=== PATIENT | male | born 1960 | race Caucasian/White ===

== ENCOUNTER 2024-02-01 07:52 | Outpatient (CLI) | payer OTHER, SELFPAY | END 2024-02-01 07:53 | disposition home or self-care (01) | LOC: ANHAUDIO 07:52 | PROVIDERS: PCP Internal Medicine; Visit Provider Internal Medicine | DX: H93.13 Tinnitus, bilateral (principal); H90.3 Sensorineural hearing loss, bilateral | CPT/HCPCS: 92557; 92567 ==

== ENCOUNTER 2024-05-10 02:07 | Day surgery (SDC) | payer OTHER, SELFPAY ==
[2024-04-26 10:27] VITALS: BMI 31.1
[2024-05-10 07:14] VITALS: BP 141/76; PULSE 83; RESP 16; TEMP 36.5; O2SAT 100
[2024-05-10] MEDS: LACTATED RINGERS 1,000 ML 150 ML IV CONT (07:21)
--- NOTE | 2024-05-10 07:48 | PM.HPGS ---
History of Present Illness History of Present Illness Consent: Risks, benefits, and alternatives have been discussed and questions answered. Patient agrees to proceed with procedure. Chief complaint: Neoplasm screening Narrative: Elie Schmid is a 63 year old male here for screening colonoscopy, last one 11 years ago Review of Systems Review of Systems: All systems reviewed & are unremarkable except as noted in HPI and below PMFSH Past Medical History Medical History (Updated 01/24/24 @ 12:32 by Chapo Valdes DO) Benign essential HTN Broken foot Left Chicken pox COVID-19 DM w/o complication type II Elevated liver enzymes Head ache History of fracture History of frequent headaches Hypercholesterolemia Hyperglycemia Long-term current use of testosterone replacement therapy Measles Metacarpal bone fracture Migraine ABREU (nonalcoholic steatohepatitis) Pectoral muscle rupture Surgical History Surgical History (Reviewed 10/29/23 @ 11:20 by Sarah Tiwari [facility]) H/O shoulder surgery right bicep labrum repair History of ankle surgery History of back surgery History of bone graft left heel bone cyst removal and bone graft Family History Family History (Reviewed 10/29/23 @ 11:20 by Sarah Tiwari [facility]) Father Renal carcinoma Mother Hypertension Diabetes mellitus Social History Social History (Updated 01/17/24 @ 08:20 by Mimi Yeung [facility]) Smoking status: Never smoker Alcohol intake: never Alcohol use details: Pt drinks occasionally. Substance use: never Substance use type: does not use Do You Feel Safe in your Home?: Yes Lack of Transportation: No Lack of Food: Never True Current Housing: I Have Housing Concerned About Future Housing: No Difficulty Paying Gas/Electric Bills: No Difficulty Paying for Meds: No Currently Unemployed: No Education: Master's Degree or Higher Difficulty w/ Childcare or Family Care: No Living arrangements: with family Occupation/Education: occupation Additional occupation/education comments: [employer] Spiritual care concerns: No Meds Home Medications and Allergies Home Medications Medication Instructions Recorded Confirmed Type cetirizine 10 mg tablet (Zyrtec) 10 mg PO DAILY 10/04/19 04/26/24 History multivitamin 1 tablet PO DAILY 10/04/19 04/26/24 History ascorbate calcium (vitamin C) 500 500 mg PO DAILY 09/22/21 04/26/24 History mg tablet rosuvastatin 40 mg tablet See Rx Instructions .Route 07/27/22 04/26/24 Rx .COMPLEX #90 tabs valsartan 160 See Rx Instructions .Route 11/05/23 04/26/24 Rx mg-hydrochlorothiazide 12.5 mg .COMPLEX #90 tabs tablet omeprazole 20 mg capsule,delayed See Rx Instructions .Route 12/27/23 04/26/24 Rx release .COMPLEX #90 caps rizatriptan 10 mg tablet (Maxalt) 10 mg PO ONCE PRN migraine 01/10/24 04/26/24 Rx headache #15 tabs needle (disp) 18 G 18 gauge x 1 #100 ea 01/20/24 Rx 1/2 (BD Regular Bevel [place]) syringe with needle 3 mL 25 x 1 #100 ea 02/29/24 Rx 1/2 (BD Luer-Lakhwinder Syringe) testosterone cypionate 200 mg/mL 120 mg (0.6 mL) IM WEEKLY #4 mL 04/11/24 04/26/24 Rx intramuscular oil topiramate 25 mg tablet See Rx Instructions PO BID 04/11/24 04/26/24 Rx migraine prophylaxis #270 tabs cyclobenzaprine 10 mg tablet See Rx Instructions .Route 04/26/24 04/26/24 History .COMPLEX PRN Muscle Spasm Allergies Allergy/AdvReac Type Severity Reaction Status Date / Time penicillin G Allergy Mild RASH Verified 05/10/24 07:13 MEPERIDINE HCL AdvReac Severe VOMITING Uncoded 05/10/24 07:13 Vital Signs Vital Signs - 24 hr 05/10/24 07:14 Temperature 97.7 F Pulse Rate 83 Respiratory Rate 16 Blood Pressure 141/76 H Pulse Oximetry 100 Oxygen Delivery Room Air Exam Const: General: comfortable and no acute distress HENMT: Face/Nose/Sinus: Normal nares present Eyes: General: appearance normal, both eyes and all rela
--- NOTE | 2024-05-10 08:07 | WPDANESEPPF ---
Anes - Initial Pre Proc Eval Procedure: Operation Date: 05/10/24 08:30 Proposed Procedures p Screening Colonoscopy - Maximilian Vicente MD Date/Time: 05/10/24 08:07 Surgeon: Maximilian Vicente MD Pre Op Diagnosis: Neoplasm screening Patient Data Age: 63 Gender: M Height: 1.91 m Weight: 112.1 kg Last Vital Signs Temp 97.7 F 05/10/24 07:14 Pulse 83 05/10/24 07:14 Resp 16 05/10/24 07:14 BP 141/76 H 05/10/24 07:14 Pulse Ox 100 05/10/24 07:14 O2 Del Method Room Air 05/10/24 07:14 Allergies Allergy/AdvReac Type Severity Reaction Status Date / Time penicillin G Allergy Mild RASH Verified 05/10/24 07:13 MEPERIDINE HCL AdvReac Severe VOMITING Uncoded 05/10/24 07:13 Home Medications Medication Instructions Recorded Confirmed Type cetirizine 10 mg tablet (Zyrtec) 10 mg PO DAILY 10/04/19 04/26/24 History multivitamin 1 tablet PO DAILY 10/04/19 04/26/24 History ascorbate calcium (vitamin C) 500 500 mg PO DAILY 09/22/21 04/26/24 History mg tablet rosuvastatin 40 mg tablet See Rx Instructions .Route 07/27/22 04/26/24 Rx .COMPLEX #90 tabs valsartan 160 See Rx Instructions .Route 11/05/23 04/26/24 Rx mg-hydrochlorothiazide 12.5 mg .COMPLEX #90 tabs tablet omeprazole 20 mg capsule,delayed See Rx Instructions .Route 12/27/23 04/26/24 Rx release .COMPLEX #90 caps rizatriptan 10 mg tablet (Maxalt) 10 mg PO ONCE PRN migraine 01/10/24 04/26/24 Rx headache #15 tabs needle (disp) 18 G 18 gauge x 1 #100 ea 01/20/24 Rx 1/2 (BD Regular Bevel [place]) syringe with needle 3 mL 25 x 1 #100 ea 02/29/24 Rx 1/2 (BD Luer-Lakhwinder Syringe) testosterone cypionate 200 mg/mL 120 mg (0.6 mL) IM WEEKLY #4 mL 04/11/24 04/26/24 Rx intramuscular oil topiramate 25 mg tablet See Rx Instructions PO BID 04/11/24 04/26/24 Rx migraine prophylaxis #270 tabs cyclobenzaprine 10 mg tablet See Rx Instructions .Route 04/26/24 04/26/24 History .COMPLEX PRN Muscle Spasm Patient hx anesthesia problems: none Family hx anesthesia problems: none Results Review: All pre-operative results and documents have been reviewed as part of the pre-operative evaluation. [facility] Past Medical History Medical History (Updated 01/24/24 @ 12:32 by Chapo Valdes DO) Benign essential HTN Broken foot Left Chicken pox COVID-19 DM w/o complication type II Elevated liver enzymes Head ache History of fracture History of frequent headaches Hypercholesterolemia Hyperglycemia Long-term current use of testosterone replacement therapy Measles Metacarpal bone fracture Migraine ABREU (nonalcoholic steatohepatitis) Pectoral muscle rupture Surgical History Surgical History H/O shoulder surgery right bicep labrum repair History of ankle surgery History of back surgery History of bone graft left heel bone cyst removal and bone graft Family History Family History Father Renal carcinoma Mother Hypertension Diabetes mellitus Social History Social History (Updated 01/17/24 @ 08:20 by Mimi Yeung [facility]) Smoking status: Never smoker Alcohol intake: never Alcohol use details: Pt drinks occasionally. Substance use: never Substance use type: does not use Do You Feel Safe in your Home?: Yes Lack of Transportation: No Lack of Food: Never True Current Housing: I Have Housing Concerned About Future Housing: No Difficulty Paying Gas/Electric Bills: No Difficulty Paying for Meds: No Currently Unemployed: No Education: Master's Degree or Higher Difficulty w/ Childcare or Family Care: No Living arrangements: with family Occupation/Education: occupation Additional occupation/education comments: [employer] Spiritual care concerns: No Anes - Eval Final PreProcedure Day of Procedure 05/10/24 08:07 Patient weight: o
[2024-05-10 08:43] VITALS: BP 116/72; PULSE 86; RESP 21; O2SAT 97
[2024-05-10 08:53] VITALS: BP 128/80; PULSE 83; RESP 18; O2SAT 97
[2024-05-10 09:03] VITALS: BP 129/78; PULSE 71; RESP 20; O2SAT 97
== END 2024-05-10 09:19 | disposition home or self-care (01) ==
PROVIDERS: PCP Internal Medicine; Visit Provider Internal Medicine Gastroenterology
PROC: 0DJD8ZZ Inspection of Lower Intestinal Tract, Via Natural or Artificial Opening Endoscopic (ICD-10-PCS; CPT 45378; principal; 2024-05-10 08:30)
DX: Z12.11 Encounter for screening for malignant neoplasm of colon (principal); K64.8 Other hemorrhoids; I10 Essential (primary) hypertension; E78.00 Pure hypercholesterolemia, unspecified; K75.81 Nonalcoholic steatohepatitis (NASH); E66.9 Obesity, unspecified; Z68.30 Body mass index [BMI] 30.0-30.9, adult; Z98.890 Other specified postprocedural states; Z98.1 Arthrodesis status; Z80.51 Family history of malignant neoplasm of kidney
CPT/HCPCS: 45378; J7120

== ENCOUNTER 2024-11-08 15:34 | Emergency (ER) | payer OTHER, SELFPAY ==
--- NOTE | ~2024-11-08 | XR_ITS ---
EXAM: XR finger 4th RT min 2V DATE: 11/08/2024 16:03 HISTORY: pain rt distal 4th finger. smashed on snow plow. . COMPARISON: None available. FINDINGS: Normal mineralization. No fracture or dislocation. No lytic or blastic lesion. Short fourt h and fifth metacarpals. Mild scattered degenerative changes. No erosion or periosteal change. Soft t issues within normal limits. IMPRESSION: No acute osseous finding in the right fourth digit. Reviewed, dictated and finalized at location [facility] [employer]
[2024-11-08 15:49] VITALS: BP 114/73; PULSE 83; RESP 16; TEMP 36.6; O2SAT 98
--- NOTE | 2024-11-08 15:53 | ED.UPPEXIN ---
HPI - Extremity Injury (Upper) General Chief Complaint: Extremity Injury, Upper Stated Complaint: right ring finger injury Time Seen by Provider: 11/08/24 15:53 Source: patient, RN notes reviewed and old records reviewed Mode of arrival: ambulatory Limitations: no limitations History of Present Illness HPI narrative: 64-year-old male presents to the [facility] with in injury to the right ring finger distal aspect. Has a 0.5 cm superficial laceration to the outer aspect of the finger. Subungual hematoma noted. States that he was working on a snow plow when he smashed it. Unknown last tetanus. Per medical record 2019. Will update Related Data Home Medications ?Medication ?Instructions ?Recorded ?Confirmed ?Last Taken ?Type cetirizine 10 mg tablet (Zyrtec) 10 mg PO DAILY 10/04/19 07/25/24 Unknown History multivitamin 1 tablet PO DAILY 10/04/19 07/25/24 Unknown History ascorbate calcium (vitamin C) 500 500 mg PO DAILY 09/22/21 07/25/24 Unknown History mg tablet cyclobenzaprine 10 mg tablet See Rx Instructions .Route 04/26/24 07/25/24 Unknown History .COMPLEX PRN Muscle Spasm resmetirom 100 mg tablet 100 mg PO DAILY 07/25/24 07/25/24 Unknown History (Christiano) Allergies Allergy/AdvReac Type Severity Reaction Status Date / Time penicillin G Allergy Mild RASH Verified 07/25/24 07:32 MEPERIDINE HCL AdvReac Severe VOMITING Uncoded 07/25/24 07:32 Review of Systems Review of Systems: All systems reviewed & are unremarkable except as noted in HPI and below Constitutional: Constitutional: Reports no additional constitutional complaints ENT: Reports system reviewed and no additional complaints, except as documented Cardiovascular: Cardiovascular: Reports no additional cardiovascular complaints, Denies chest pain and Denies dyspnea Respiratory: Respiratory: Reports no additional respiratory complaints, Denies chest congestion, Denies cough and Denies dyspnea Musculoskeletal: Musculoskeletal: Reports as per HPI Integumentary/Breasts: Skin/Breast: Reports as per HPI PMF Past Medical History Medical History Migraine Head ache ABREU (nonalcoholic steatohepatitis) Long-term current use of testosterone replacement therapy DM w/o complication type II COVID-19 Broken foot Left Metacarpal bone fracture Hyperglycemia Elevated liver enzymes Pectoral muscle rupture Hypercholesterolemia History of frequent headaches History of fracture Measles Chicken pox Benign essential HTN Surgical History Surgical History History of ankle surgery History of bone graft left heel bone cyst removal and bone graft H/O shoulder surgery right bicep labrum repair History of back surgery Family History Family History Father Renal carcinoma Mother Hypertension Diabetes mellitus Social History Social History Social History: Caffeine-daily Smoking status: Never smoker Alcohol intake: current Alcohol use details: Pt drinks occasionally. Substance use: never Substance use type: does not use Do You Feel Safe in your Home?: Yes Lack of Transportation: No Lack of Food: Never True Current Housing: I Have Housing Concerned About Future Housing: No Difficulty Paying Gas/Electric Bills: No Difficulty Paying for Meds: No Currently Unemployed: No Education: Master's Degree or Higher Difficulty w/ Childcare or Family Care: No Living arrangements: with family Occupation/Education: occupation Additional occupation/education comments: [employer] Spiritual care concerns: No Comments At the time of my signature, I reviewed and agree with the nursing past medical, surgical, social, and family history. There is no relevant family history pertinent to the patient complaint. Exam Const: General: cooperative, healthy appearing, comfortable, no acute distress, well developed, alert and well nourished Nutritional Appearance: well nourished Orientation/consciousness: patient oriented x3 Limitations: no limitations HENMT: Head: normal to inspection Eyes: General: appearance normal, both eyes and all related structures Alignment and Position: alignment normal Neck: Neck: normal visual inspection, full ROM, no lymphadenopathy and no meningeal signs Chest: Chest palpation & inspection: normal inspection of the chest Resp: Effort & Inspection: normal respiratory effort and able to speak in complete sentences Cardio: Rate: regular rate Skin: General skin exam: normal color and no rashes or lesions noted Wounds: wounds noted laceration right distal 4th finger size (0.5) and margins well approximated; no drainage and without any surrounding erythema Neuro: General: patient oriented x3, gait normal, moves all extremities and no meningeal signs Cognition (Neuro): normal cognition Speech: normal speech Gait exam (Neuro): Normal gait present Extrem: General: normal to inspection, full ROM, capillary refill normal and normal gait Right upper extremity: full ROM and Extremity exam: right hand laceration and ecchymosis of the 4th digit at the distal phalanx and at the nailbed; no foreign bodies Psych: Appearance: grossly normal and well kempt Mental Status: mental status grossly normal Speech and movement: Normal speech and movement present and Clear speech present Affect: normal affect Attitude: cooperative Course Course Level of Care: Express Care Visit Vital Signs Vital signs: Vital Signs Temperature 97.8 F 11/08/24 15:49 Pulse Rate 83 11/08/24 15:49 Respiratory Rate 16 11/08/24 15:49 Blood Pressure 114/73 11/08/24 15:49 Pulse Oximetry 98 11/08/24 15:49 Oxygen Delivery Room Air 11/08/24 15:49 Temperature 97.8 F 11/08/24 15:49 Pulse Rate 83 11/08/24 15:49 Respiratory Rate 16 11/08/24 15:49 Blood Pressure 114/73 11/08/24 15:49 Pulse Oximetry 98 11/08/24 15:49 Oxygen Delivery Room Air 11/08/24 15:49 Reviewed MDM - Extremity Injury (Upper) MDM Narrative Medical decision making narrative: Patient sitting comfortably in exam room. Nontoxic, vitals stable. Patient in no acute distress. Patient with previous surgery orthopedic on finger, concern for fracture. Does have a some own go hematoma, very minor, laceration to the finger as well, able to irrigate and use skin glue. Tried with cautery tool to drain the subungual hematoma, no success. Patient appropriate for outpatient treatment and follow-up Discharge instructions reviewed with patient, as well as provided in writing per nursing staff. The instructions also include specific and strict return/GO TO THE ER as well as f/u information. All questions have been answered, and the patient deny any further questions with discharge and discharge plan. Some parts of this dictation were generated by voice recognition software and may contain typographical and/or grammatical inaccuracies. Differential Diagnosis Differential diagnosis: Likely other (Laceration, subungual hematoma, contusion, fracture) Imaging Data Radiologist's impression: EXAM: XR finger 4th RT min 2V DATE: 11/08/2024 16:03 HISTORY: pain rt distal 4th finger. smashed on snow plow. . COMPARISON: None available. FINDINGS: Normal mineralization. No fracture or dislocation. No lytic or blastic lesion. Short fourth and fifth metacarpals. Mild scattered degenerative changes. No erosion or periosteal change. Soft tissues within normal limits. IMPRESSION: No acute osseous finding in the right fourth digit. Critical Care Time Critical Care Time Critical Care Time: No Discharge Plan Discharge Clinical Impression: Subungual hematoma, Superficial laceration of finger, Vaccine for [id number], combined Patient Disposition: Home, Self-Care Condition: Stable Instructions: Antibiotic Form, Subungual Hematoma (ED), Skin Adhesive Care (ED) Additional Instructions: Rest, ice and elevate every 2-3 hours for 15-20 minutes while awake. Take Motrin as needed for pain. Wash with warm soapy water 2 to 3 times a day. Pat dry. While skin glue is in place please do not use any type of creams, ointments, lotions, detergents or hand advertising operations manager is. Follow-up with primary care provider Patient Language: Kuwaiti Prescriptions: No Action ascorbate calcium (vitamin C) 500 mg tablet 500 mg PO DAILY multivitamin Tablet 1 tablet PO DAILY cetirizine [Zyrtec] 10 mg tablet 10 mg PO DAILY Rezdiffra 100 mg tablet 100 mg PO DAILY cyclobenzaprine 10 mg tablet See Rx Instructions .ROUTE .COMPLEX PRN (Reason: Muscle Spasm) Rx Instructions: TAKE 1 TABLET BY MOUTH TWICE A DAY NEEDED FOR MUSCLE SPASMS (DME) BD Regular Bevel [place] 18 gauge x 1 1/2 needle See Rx Instructions .Route Qty: 100 1RF Rx Instructions: Use to draw up Testosterone (DME) BD Luer-Lakhwinder Syringe 3 mL 25 x 1 1/2 syringe See Rx Instructions .Route Qty: 100 2RF Rx Instructions: Use to inject Testosterone topiramate 50 mg tablet 50 mg PO BID Qty: 60 6RF omeprazole 20 mg capsule,delayed release(DR/EC) See Rx Instructions .ROUTE .COMPLEX Qty: 90 1RF Dose Instruction: TAKE 1 CAPSULE BY MOUTH EVERY DAY AT LEAST 30 MINUTES BEFORE EATING Rx Instructions: TAKE 1 CAPSULE BY MOUTH EVERY DAY AT LEAST 30 MINUTES BEFORE EATING testosterone cypionate 200 mg/mL oil 120 mg IM WEEKLY Qty: 10 2RF Rx Instructions: WEDNESDAY valsartan-hydrochlorothiazide 160-12.5 mg tablet See Rx Instructions .ROUTE .COMPLEX Qty: 90 3RF Dose Instruction: TAKE 1 TABLET BY MOUTH EVERY DAY Rx Instructions: TAKE 1 TABLET BY MOUTH EVERY DAY rizatriptan [Maxalt] 10 mg tablet 10 mg PO ONCE PRN (Reason: migraine headache) Qty: 15 0RF Rx Instructions: 1 tab prn max 2 tabs per day. LAST REFILL UNTIL SEEN-NEEDS APPOINTMENT. rosuvastatin 20 mg tablet 20 mg PO DAILY Qty: 90 1RF Follow-up/Referrals: Chapo Valdes DO [Primary Care Provider] - 1 Week (express care follow up ) Stand Alone Forms: Work/School Release IP Time of Disposition: 16:33
[2024-11-08] MEDS: LIDOCAINE 1% LOCAL INJ 2 ML AMPUL INFILTRATE (16:19)
[2024-11-08] MEDS: TETANUS,DIPHTHERIA,AC PERTUSSIS ADULT (0.5 ML) BOOSTRIX IM (16:33)
== END 2024-11-08 16:40 | disposition home or self-care (01) ==
PROVIDERS: Emergency Provider Nurse Practitioner; PCP Internal Medicine
DX: S61.214A Laceration without foreign body of right ring finger without damage to nail, initial encounter (principal); S60.041A Contusion of right ring finger without damage to nail, initial encounter; X58.XXXA Exposure to other specified factors, initial encounter; Z79.899 Other long term (current) drug therapy; Z23 Encounter for immunization; E11.9 Type 2 diabetes mellitus without complications; I10 Essential (primary) hypertension
CPT/HCPCS: 12001; 73140; 90471; 90715; 99213; G0463; J2003